=== PATIENT | female | born 1965 | race Caucasian/White ===

== ENCOUNTER 2017-11-25 14:08 | Observation (INO) | payer SELFPAY ==
[~2017-11-25] VITALS: Ht 170.2 cm; Wt 74.0 kg
[2017-11-25] VITALS (7 sets, daily range): BP systolic 151–172; BP diastolic 82–107; PULSE 65–88; RESP 16–18; TEMP 97.5; O2SAT 97–100
[~2017-11-25 14:08] MED LIST: PRED20 PO; WAL-10TA2 PO
[2017-11-25 14:24] LABS: BILIRUBIN, URINE NEG (NEG); BLOOD, URINE NEG (NEG); GLUCOSE,URINE NEG (NEG); KETONE, URINE 15 mg/dL (NEG); NITRITE,URINE NEG (NEG); URINE COLOR YELLOW (YELLW/STRAW); URINE LEUKOCYTE ESTERASE NEG (NEG)
[2017-11-25] MEDS ORDERED: SODIUM CHLOR 0.9% 1000 ML INJ 1,000 ML IV SCH (14:28)
[2017-11-25] MEDS ORDERED: KETOROLAC TROMETHAMINE 30 MG/ML (IVP) VIAL IVP ONE (14:30)
[2017-11-25] MEDS ORDERED: SODIUM CHLORIDE 0.9% FLUSH 10 ML FLUSH IV FLUSH PRN ×2 (14:30→17:30)
[2017-11-25] MEDS ORDERED: ONDANSETRON HCL 4 MG/2 ML VIAL IVP ONE (14:30)
--- NOTE | 2017-11-25 14:34 | PD ---
HPI Chief Complaint: Abdominal Pain Time Seen by Provider: 14:19 Travel History International Travel<30 days: No Contact w/Intl Traveler<30days: No Traveled to known affect area: No History of Present Illness HPI Patient is a 52-year-old female who presents the emergency room with complaints of abdominal pain. Patient reports that her abdominal pain began yesterday after she ate a whopper sandwich for lunch. Reports pain as mild to moderate in nature. Patient reports that her pain is located to her upper abdomen: epigastrium to right upper quadrant, reports that the pain radiates down to her abdomen. Reports that she is having some nausea with her symptoms. Nothing makes pain better or worse. Patient is concerned that she may be lactose intolerant, she did take some lactose pills prior to eating her sandwich yesterday. Patient reports that she has been having persistent abdominal pain since yesterday afternoon. Patient did have a normal bowel movement yesterday. Patient with no chest pain or shortness of breath, no fevers or chills. Patient denies dysuria, urinary urgency or frequency. 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: Yes (H/O PREECLAMPSIA) Respiratory: Yes (CHRONIC BRONCHITIS) Tetanus Vaccination: Unknown ?: Not Tubal Ligation: Yes Past Surgical History Section: Yes Coronary Artery Bypass Graft: No Gynecologic Surgery: Yes Hysterectomy: Yes Family History Family Myocardial Infarction: Yes Social History Alcohol Use: No Tobacco Use: Yes (1 PPD) Substance Use: No Allergies-Medications (Allergen,Severity, Reaction): Coded Allergies: morphine (Unverified Allergy, Severe, Anaphylaxis, 11/25/17) Reported Meds & Prescriptions Reported Meds & Active Scripts Active No Active Prescriptions or Reported Medications Review of Systems General / Constitutional: No: Fever, Chills Eyes: No: Visual changes HENT: No: Headaches Cardiovascular: No: Chest Pain or Discomfort, Palpitations, Irregular Rhythm Respiratory: No: Shortness of Breath Gastrointestinal: Positive: Nausea, Abdominal Pain, Loss of Appetite, No: Vomiting, Diarrhea, Constipation Genitourinary: No: Dysuria Musculoskeletal: No: Pain Skin: No Rash Neurologic: No: Weakness Psychiatric: No: Depression Endocrine: No: Polydipsia Hematologic/Lymphatic: No: Easy Bruising Physical Exam Narrative GENERAL: moderate distress SKIN: Focused skin assessment warm/dry. HEAD: Atraumatic. Normocephalic. EYES: Pupils equal and round. No scleral icterus. No injection or drainage. ENT: No nasal bleeding or discharge. Mucous membranes pink and moist. NECK: Trachea midline. No JVD. CARDIOVASCULAR: Regular rate and rhythm. No murmur appreciated. RESPIRATORY: No accessory muscle use. Clear to auscultation. Breath sounds equal bilaterally. GASTROINTESTINAL: Abdomen soft, increased tenderness to RUQ/epigastrium with guarding on exam, nondistended. Hepatic and splenic margins not palpable. MUSCULOSKELETAL: No obvious deformities. No clubbing. No cyanosis. No edema. NEUROLOGICAL: Awake and alert. No obvious cranial nerve deficits. Motor grossly within normal limits. Normal speech. PSYCHIATRIC: Appropriate mood and affect; insight and judgment normal. Data Data Last Documented VS Vital Signs Date Time Temp Pulse Resp B/P (MAP) Pulse Ox O2 Delivery O2 Flow Rate FiO2 11/25/17 15:48 97 Room Air 11/25/17 15:35 88 17 155/82 (106) 11/25/17 14:12 97.5 Orders Orders Urinalysis - C+S If Indicated (11/25/17 14:11) Complete Blood Count With Diff (11/25/17 14:28) Comprehensive Metabolic Panel (11/25/17 14:28) Lipase (11/25/17 14:28) Prothrombin Time / Inr (Pt) (11/25/17 14:28) Act Partial Throm Time (Ptt) (11/25/17 14:28) Us Abdomen Gallbladder (11/25/17 ) Iv Access Insert/Monitor (11/25/17 14:28) Ecg Monitoring (11/25/17 14:28) Oximetry (11/25/17 14:28) NPO (11/25/17 14:28) Ondansetron Inj (Zofran Inj) (11/25/17 14:30) Sodium Chlor 0.9% 1000 Ml Inj (Ns 1000 M (11/25/17 14:28) Sodium Chloride 0.9% Flush (Ns Flush) (11/25/17 14:30) Ketorolac Inj (Toradol Inj) (11/25/17 14:30) Sodium Chlor 0.9% 1000 Ml Inj (Ns 1000 M (11/25/17 15:15) Ct Abd/Pel W Iv Contrast(Rout) (11/25/17 15:36) Electrocardiogram (11/25/17 ) Iohexol 350 Inj (Omnipaque 350 Inj) (11/25/17 16:19) Admit Order (Ed Use Only) (11/25/17 17:25) Labs Laboratory Tests Test 11/25/17 14:18 11/25/17 14:30 Urine Collection Type CLEAN CATCH Urine Color YELLOW Urine Turbidity CLEAR Urine pH 7.0 Urine Specific Jelm 1.010 Urine Protein NEG mg/dL Urine Glucose (UA) NEG mg/dL Urine Ketones 15 mg/dL Urine Occult Blood NEG Urine Nitrite NEG Urine Bilirubin NEG Urine Urobilinogen 0.2 MG/DL Urine Leukocyte Esterase NEG Urine WBC 0-2 /hpf Urine Squamous Epithelial Cells 0-5 /hpf Urine Bacteria OCC /hpf Microscopic Urinalysis Comment CULT NOT INDICATED Urine Collection Time 14:18 White Blood Count 16.0 TH/MM3 Red Blood Count 5.36 MIL/MM3 Hemoglobin 15.8 GM/DL Hematocrit 45.6 % Mean Corpuscular Volume 85.2 FL Mean Corpuscular Hemoglobin 29.5 PG Mean Corpuscular Hemoglobin Concent 34.6 % Red Cell Distribution Width 12.6 % Platelet Count 378 TH/MM3 Mean Platelet Volume 7.7 FL Neutrophils (%) (Auto) 75.8 % Lymphocytes (%) (Auto) 13.2 % Monocytes (%) (Auto) 7.6 % Eosinophils (%) (Auto) 0.1 % Basophils (%) (Auto) 3.3 % Neutrophils # (Auto) 12.2 TH/MM3 Lymphocytes # (Auto) 2.1 TH/MM3 Monocytes # (Auto) 1.2 TH/MM3 Eosinophils # (Auto) 0.0 TH/MM3 Basophils # (Auto) 0.5 TH/MM3 CBC Comment DIFF FINAL Differential Comment Prothrombin Time 10.3 SEC Prothromb Time International Ratio 1.0 RATIO Activated Partial Thromboplast Time 25.4 SEC Blood Urea Nitrogen 7 MG/DL Creatinine 0.75 MG/DL Random Glucose 109 MG/DL Total Protein 8.1 GM/DL Albumin 3.9 GM/DL Calcium Level 9.4 MG/DL Alkaline Phosphatase 75 U/L Aspartate Amino Transf (AST/SGOT) 17 U/L Alanine Aminotransferase (ALT/SGPT) 17 U/L Total Bilirubin 1.3 MG/DL Sodium Level 137 MEQ/L Potassium Level 3.6 MEQ/L Chloride Level 105 MEQ/L Carbon Dioxide Level 24.5 MEQ/L Anion Gap 8 MEQ/L Estimat Glomerular Filtration Rate 82 ML/MIN Lipase 99 U/L MDM Medical Decision Making Medical Screen Exam Complete: Yes Emergency Medical Condition: Yes Medical Record Reviewed: Yes Interpretation(s) Vital Signs Date Time Temp Pulse Resp B/P (MAP) Pulse Ox O2 Delivery O2 Flow Rate FiO2 11/25/17 14:12 97.5 75 18 172/88 (116) 98 EKG at 1629: NSR at 62bpm, qt/qtc: 491/497, no acute st or t wave changes, hyperacute t waves Laboratory Tests Test 11/25/17 14:18 11/25/17 14:30 Urine Collection Type CLEAN CATCH Urine Color YELLOW (YELLW/STRAW) Urine Turbidity CLEAR (CLEAR) Urine pH 7.0 (5.0-8.5) Urine Specific Jelm 1.010 (1.002-1.035) Urine Protein NEG mg/dL (NEG-TRACE) Urine Glucose (UA) NEG mg/dL (NEG) Urine Ketones 15 mg/dL (NEG) Urine Occult Blood NEG (NEG) Urine Nitrite NEG (NEG) Urine Bilirubin NEG (NEG) Urine Urobilinogen 0.2 MG/DL (LESS THAN Urine Leukocyte Esterase NEG (NEG) Urine WBC 0-2 /hpf (0-5) Urine Squamous Epithelial Cells 0-5 /hpf (0-5) Urine Bacteria OCC /hpf (NONE) Microscopic Urinalysis Comment CULT NOT INDICATED Urine Collection Time 14:18 White Blood Count 16.0 TH/MM3 (4.0-11.0) Red Blood Count 5.36 MIL/MM3 (4.00-5.30) Hemoglobin 15.8 GM/DL (11.6-15.3) Hematocrit 45.6 % (35.0-46.0) Mean Corpuscular Volume 85.2 FL (80.0-100.0) Mean Corpuscular Hemoglobin 29.5 PG (27.0-34.0) Mean Corpuscular Hemoglobin Concent 34.6 % (32.0-36.0) Red Cell Distribution Width 12.6 % (11.6-17.2) Platelet Count 378 TH/MM3 (150-450) Mean Platelet Volume 7.7 FL (7.0-11.0) Neutrophils (%) (Auto) 75.8 % (16.0-70.0) Lymphocytes (%) (Auto) 13.2 % (9.0-44.0) Monocytes (%) (Auto) 7.6 % (0.0-8.0) Eosinophils (%) (Auto) 0.1 % (0.0-4.0) Basophils (%) (Auto) 3.3 % (0.0-2.0) Neutrophils # (Auto) 12.2 TH/MM3 (1.8-7.7) Lymphocytes # (Auto) 2.1 TH/MM3 (1.0-4.8) Monocytes # (Auto) 1.2 TH/MM3 (0-0.9) Eosinophils # (Auto) 0.0 TH/MM3 (0-0.4) Basophils # (Auto) 0.5 TH/MM3 (0-0.2) CBC Comment DIFF FINAL Differential Comment Prothrombin Time 10.3 SEC (9.8-11.6) Prothromb Time International Ratio 1.0 RATIO Activated Partial Thromboplast Time 25.4 SEC (24.3-30.1) Blood Urea Nitrogen 7 MG/DL (7-18) Creatinine 0.75 MG/DL (0.50-1.00) Random Glucose 109 MG/DL (74-106) Total Protein 8.1 GM/DL (6.4-8.2) Albumin 3.9 GM/DL (3.4-5.0) Calcium Level 9.4 MG/DL (8.5-10.1) Alkaline Phosphatase 75 U/L (45-117) Aspartate Amino Transf (AST/SGOT) 17 U/L (15-37) Alanine Aminotransferase (ALT/SGPT) 17 U/L (10-53) Total Bilirubin 1.3 MG/DL (0.2-1.0) Sodium Level 137 MEQ/L (136-145) Potassium Level 3.6 MEQ/L (3.5-5.1) Chloride Level 105 MEQ/L (98-107) Carbon Dioxide Level 24.5 MEQ/L (21.0-32.0) Anion Gap 8 MEQ/L (5-15) Estimat Glomerular Filtration Rate 82 ML/MIN (>89) Lipase 99 U/L (73-393) Last Impressions Gall Bladder Ultrasound 11/25/17 0000 Signed Impressions: Service Date/Time: Saturday, November 25, 2017 14:36 - CONCLUSION: Hepatomegaly. Octavio Taylor MD Differential Diagnosis Gastritis, gastroenteritis, cholecystitis, pancreatitis, electrolyte abnormality , hepatitis, gastric ulcer Narrative Course Patient is a 52-year-old female who presents the emergency room complaints of abdominal pain which has been ongoing since yesterday afternoon after she ate a whopper sandwich at a local fast food restaurant. During the course of the patients emergency department visit, the patients history, examination, and differential diagnosis were reviewed with the patient. The patient was placed on a site reliability engineer with oximetry and frequent blood pressure monitoring. The patient had an IV access obtained and blood work sent for analysis. The patient was initially provided IV toradol, IVF The patients laboratory studies were reviewed and remarkable for CBC & BMP Diagram 11/25/17 14:30 Total Protein 8.1, Albumin 3.9, Calcium Level 9.4, Alkaline Phosphatase 75, Aspartate Amino Transf (AST/SGOT) 17, Alanine Aminotransferase (ALT/SGPT) 17, Total Bilirubin 1.3 H Radiology studies were reviewed and remarkable for Last Impressions Gall Bladder Ultrasound 11/25/17 0000 Signed Impressions: Service Date/Time: Saturday, November 25, 2017 14:36 - CONCLUSION: Hepatomegaly. Octavio Taylor MD Gallbladder ultrasound significant for hepatomegaly, there is normal gallbladder. Patient reports that pain has improved but she still is uncomfortable. CT the abdomen and pelvis with IV contrast ordered to further evaluate abdominal pain Last Impressions Abdomen/Pelvis CT 11/25/17 1536 Signed Impressions: Service Date/Time: Saturday, November 25, 2017 16:08 - CONCLUSION: 1. Wedge-shaped area of low-density in the spleen likely infarct in the absence of trauma. 2. Soft tissue nodule posterior right pelvis could be hemorrhagic cyst or other ovarian etiology. Pelvic sonogram recommended for further characterization. Deepak Serrano MD Gall Bladder Ultrasound 11/25/17 0000 Signed Impressions: Service Date/Time: Saturday, November 25, 2017 14:36 - CONCLUSION: Hepatomegaly. Octavio Taylor MD CT the abdomen and pelvis shows a wedge-shaped area of low density spleen which would likely represent a splenic infarct. Patient does not have presence of a hypercoagulable state, she does not have history of an embolic disease or underlying neoplasm, she does not have history of hemoglobinopathy or sickle cell disease, patient was not involved in any trauma. Given the fact she continues to have upper abdominal pain, plan to admit her to the hospital for further evaluation case reviewed with Dr. Randall who accepts pt to service Diagnosis Primary Impression: Splenic infarct Additional Impression: Abdominal pain Qualified Codes: R10.10 - Upper abdominal pain, unspecified Admitting Information Admitting Physician Requests: Observation Scripts No Active Prescriptions or Reported Meds Jessica Ordonez DO Nov 25, 2017 14:34
[2017-11-25 14:39] LABS: AUTOMATED NEUTROPHIL # 12.2 TH/MM3 (1.8-7.7); BASOPHIL # 0.5 TH/MM3 (0-0.2); BASOPHIL % 3.3 % (0.0-2.0); EOSINOPHIL % 0.1 % (0.0-4.0); HEMATOCRIT 45.6 % (35.0-46.0); HEMOGLOBIN 15.8 GM/DL (11.6-15.3); LYMPH % 13.2 % (9.0-44.0); LYMPHOCYTE # 2.1 TH/MM3 (1.0-4.8); MEAN CELL VOLUME 85.2 FL (80.0-100.0); MEAN CORPUSCULAR HEMOGLOBIN 29.5 PG (27.0-34.0); MEAN CORPUSCULAR HGB CONC 34.6 % (32.0-36.0); MEAN PLATELET VOLUME 7.7 FL (7.0-11.0); MONO % 7.6 % (0.0-8.0); MONOCYTE # 1.2 TH/MM3 (0-0.9); NEUT % 75.8 % (16.0-70.0); PLATELET COUNT 378 TH/MM3 (150-450); RED BLOOD COUNT 5.36 MIL/MM3 (4.00-5.30); RED CELL DISTRIBUTION WIDTH 12.6 % (11.6-17.2)
[2017-11-25 14:52] LABS: CHLORIDE 105 MEQ/L (98-107); SODIUM (NA) 137 MEQ/L (136-145)
[2017-11-25 14:55] LABS: CALCIUM 9.4 MG/DL (8.5-10.1)
[2017-11-25 14:56] LABS: ALBUMIN 3.9 GM/DL (3.4-5.0); BICARBONATE 24.5 MEQ/L (21.0-32.0); BLOOD UREA NITROGEN 7 MG/DL (7-18); GLUCOSE,RANDOM 109 MG/DL (74-106)
[2017-11-25 14:58] LABS: ALT (GPT) 17 U/L (10-53); AST (GOT) 17 U/L (15-37); CREATININE 0.75 MG/DL (0.50-1.00); GLOMERULAR FILTRATION RATE 82 ML/MIN (>89)
[2017-11-25 14:59] LABS: PROTHROMBIN TIME - PATIENT 10.3 SEC (9.8-11.6)
[2017-11-25 15:00] LABS: TOTAL BILIRUBIN ADULT 1.3 MG/DL (0.2-1.0); TOTAL PROTEIN 8.1 GM/DL (6.4-8.2)
[2017-11-25 15:01] LABS: ALKALINE PHOSPHATASE 75 U/L (45-117)
[2017-11-25] MEDS ORDERED: SODIUM CHLOR 0.9% 1000 ML INJ 1,000 ML IV ONE (15:15)
--- NOTE | 2017-11-25 15:30 | RADRPT ---
EXAM DATE/TIME: 11/25/2017 14:36 [facility] COMPARISON: US ABDOMEN - GALLBLADDER, August 26, 2013, 11:48. INDICATIONS : Right upper quadrant pain. MEDICAL HISTORY : Spinal cyst. Chronic bronchitis. Scoliosis. Bipolar disorder. SURGICAL HISTORY : Tubal ligation. Hysterectomy. section. ENCOUNTER: Initial ACUITY: 2 days PAIN SCORE: 10/10 LOCATION: Right upper quadrant MEASUREMENTS: LIVER: 19.5 cm length COMMON DUCT: 4 mm RIGHT KIDNEY: 10.8 x 4.9 x 4.0 cm FINDINGS: LIVER: The liver appears enlarged. There is no focal lesion or ductal dilatation. COMMON DUCT: No intraluminal mass or stone visualized. GALLBLADDER: Contains no stones, demonstrates no wall thickening or pericholecystic fluid. PANCREAS: The visualized portions are within normal limits. RIGHT KIDNEY: No evidence of hydronephrosis, stone, or mass. CONCLUSION: Hepatomegaly. Octavio Taylor MD on November 25, 2017 at 15:27 Board Certified Radiologist. This report was verified electronically.
[2017-11-25] MEDS ORDERED: IOHEXOL 350 MG/ML 10 ML VIAL (for RAD DIAG) IVCONTRAST ONE (16:19)
[2017-11-25 16:28] LABS: BACTERIA, URINE OCC /hpf; SQUAMOUS EPITHELIAL CELL URINE 0-5 /hpf (0-5); WBC, URINE 0-2 /hpf (0-5)
--- NOTE | 2017-11-25 16:39 | RADRPT ---
EXAM DATE/TIME: 11/25/2017 16:08 [facility] COMPARISON: No previous studies available for comparison. INDICATIONS : Pain across abdomen, nausea, vomiting. IV CONTRAST: 75 cc Omnipaque 350 (iohexol) IV ORAL CONTRAST: No oral contrast ingested. RADIATION DOSE: 10.11 CTDIvol (mGy) MEDICAL HISTORY : Cyst on spine, scoliosis, bronchitis, Bipolar SURGICAL HISTORY : Tubal ligation. Hysterectomy. ENCOUNTER: Initial ACUITY: 1 day PAIN SCALE: 10/10 LOCATION: Bilateral diffuse abdomen TECHNIQUE: Volumetric scanning of the abdomen and pelvis was performed. Using automated exposure control and ad justment of the mA and/or kV according to patient size, radiation dose was kept as low as reasonably achievable to obtain optimal diagnostic quality images. DICOM format image data is available electro nically for review and comparison. FINDINGS: LOWER LUNGS: The visualized lower lungs are clear. LIVER: Homogeneous density without lesion. There is no dilation of the biliary tree. No calcified gallston es. SPLEEN: Wedge-shaped area of low-density in the spleen likely infarct.. PANCREAS: Within normal limits. KIDNEYS: Normal in size and shape. There is no mass, stone or hydronephrosis. ADRENAL GLANDS: Within normal limits. VASCULAR: There is no aortic aneurysm. BOWEL/MESENTERY: The stomach, small bowel, and colon demonstrate no acute abnormality. There is no free intraperitone al air or fluid. Normal appendix. ABDOMINAL WALL: Within normal limits. RETROPERITONEUM: There is no lymphadenopathy. BLADDER: No wall thickening or mass. REPRODUCTIVE: Status post hysterectomy. Soft tissue nodule right posterior pelvis measures 4.1 x 4.1 cm.. INGUINAL: There is no lymphadenopathy or hernia. MUSCULOSKELETAL: Within normal limits for patient age. CONCLUSION: 1. Wedge-shaped area of low-density in the spleen likely infarct in the absence of trauma. 2. Soft tissue nodule posterior right pelvis could be hemorrhagic cyst or other ovarian etiology. Pel dave sonogram recommended for further characterization. Deepak Serrano MD on November 25, 2017 at 16:34 Board Certified Radiologist. This report was verified electronically.
[2017-11-25] MEDS ORDERED: NALOXONE HCL 0.4 MG/ML AMP IV PUSH PRN (17:30)
[2017-11-25] MEDS ORDERED: ONDANSETRON HCL 4 MG/2 ML VIAL IVP PRN (17:30)
[2017-11-25] MEDS ORDERED: MAGNESIUM HYDROXIDE SUSP 30 ML CUP PO PRN (17:30)
[2017-11-25] MEDS: ENOXAPARIN SODIUM 40 MG/0.4 ML SYRINGE SQ SCH (18:09)
[2017-11-25] MEDS: SODIUM CHLORIDE 0.9% FLUSH 10 ML FLUSH IV FLUSH SCH (19:29)
[2017-11-25] MEDS: ACETAMINOPHEN/HYDROcodone 325 MG/10 MG TAB PO PRN (20:08)
[2017-11-26] VITALS: BP 157/100; PULSE 74; RESP 16; TEMP 97.5; O2SAT 98
[2017-11-26] MEDS: ACETAMINOPHEN/HYDROcodone 325 MG/10 MG TAB PO PRN ×2 (00:10→06:20)
--- NOTE | 2017-11-26 00:12 | EKG ---
Date Performed: 11/25/2017 Time Performed: 16:29:45 PTAGE: 52 years EKG: Sinus rhythm TALL T-WAVES, SUGGESTS HYPERKALEMIA PROLONGED QT INTERVAL ABNORMAL ECG PREVIOUS TRACING : 08/26/2013 12.38 Compared to previous tracing, T-waves with peaking and prol onged QTc, consideration of hyperkalemia DOCTOR: David Watkins Interpretating Date/Time 11/26/2017 00:12:05
[2017-11-26 06:39] LABS: AUTOMATED NEUTROPHIL # 7.7 TH/MM3 (1.8-7.7); BASOPHIL # 0.1 TH/MM3 (0-0.2); BASOPHIL % 0.7 % (0.0-2.0); EOSINOPHIL % 0.4 % (0.0-4.0); HEMATOCRIT 39.4 % (35.0-46.0); HEMOGLOBIN 13.4 GM/DL (11.6-15.3); LYMPH % 14.9 % (9.0-44.0); LYMPHOCYTE # 1.5 TH/MM3 (1.0-4.8); MEAN CORPUSCULAR HEMOGLOBIN 29.1 PG (27.0-34.0); MEAN CORPUSCULAR HGB CONC 33.8 % (32.0-36.0); MEAN PLATELET VOLUME 7.9 FL (7.0-11.0); MONO % 10.3 % (0.0-8.0); MONOCYTE # 1.1 TH/MM3 (0-0.9); NEUT % 73.7 % (16.0-70.0); PLATELET COUNT 267 TH/MM3 (150-450); RED BLOOD COUNT 4.59 MIL/MM3 (4.00-5.30); RED CELL DISTRIBUTION WIDTH 12.3 % (11.6-17.2); WHITE BLOOD COUNT 10.4 TH/MM3 (4.0-11.0)
[2017-11-26 06:49] LABS: CHLORIDE 108 MEQ/L (98-107); SODIUM (NA) 139 MEQ/L (136-145)
[2017-11-26 07:20] LABS: ALBUMIN 3.2 GM/DL (3.4-5.0); ALKALINE PHOSPHATASE 61 U/L (45-117); ALT (GPT) 13 U/L (10-53); AST (GOT) 13 U/L (15-37); BICARBONATE 25.3 MEQ/L (21.0-32.0); BLOOD UREA NITROGEN 8 MG/DL (7-18); CALCIUM 8.5 MG/DL (8.5-10.1); CREATININE 0.65 MG/DL (0.50-1.00); GLOMERULAR FILTRATION RATE 96 ML/MIN (>89); GLUCOSE,RANDOM 97 MG/DL (74-106); TOTAL BILIRUBIN ADULT 1.4 MG/DL (0.2-1.0); TOTAL PROTEIN 6.9 GM/DL (6.4-8.2)
[2017-11-26 07:47] VITALS: BP 146/92; PULSE 68; RESP 16; TEMP 98.1; O2SAT 95
[2017-11-26] MEDS ORDERED: ASPIRIN 325 MG TAB PO ONE (09:00)
[2017-11-26] MEDS ORDERED: PNEUMOCOCCAL POLYVALENT INJ 25 MCG/0.5 ML SYR IM ONE (09:00)
--- NOTE | 2017-11-26 09:10 | HHI.HP ---
[facility] Phys[place] No Primary Care Physician Admission Diagnosis Splenic infarction Diagnoses: Chief Complaint: Abdominal pain Travel History International Travel<30 Days: No Contact w/Intl Traveler <30 Da: No Traveled to Known Affected Are: No History of Present Illness 52-year-old white female being admitted for intractable abdominal pain. Patient was in her usual state of health until 2 days ago around noon when she began experiencing a cramping pain in her midabdomen that progressed in intensity over time, did also have a colicky nature. Pain became so severe, took Advil to no avail. Decided to come to the emergency department. Did have some nausea and very mild clear emesis. Otherwise did not have any diarrhea, no hematuria, no dysuria. Pain is not worsened by eating, but it is affecting her appetite. Patient says that this pain presentation did happen about 2 weeks ago to much milder extent and did self resolve. In the emergency department patient had a CT abdomen which was performed, which I independently reviewed and I see substantial stool retention throughout the colon. There does appear to be an opacity per the radiologist read over the spleen of a wedgelike possible infarct. Radiology also read as a possible hemorrhagic cyst or ovary on the right side. Gallbladder ultrasound reading indicates hepatomegaly, otherwise unremarkable. I independently reviewed the EKG and see no signs of atrial fibrillation but I do see pronounced T waves. Review of Systems Except as stated in HPI: all other systems reviewed are Neg Past Family Social History Past Medical History Chronic bronchitis per patient Past Surgical History Hysterectomy due to fibroids, still has ovaries Allergies: Coded Allergies: morphine (Unverified Allergy, Severe, Anaphylaxis, 11/25/17) mushroom (Verified Allergy, Severe, BODY SWELLING, 11/25/17) Family History Breast cancer in grandmother, ovarian cancer in mother, leukemia and aunt, stroke in father Social History Lifelong history of intermittent smoking, denies drinking alcohol Physical Exam Vital Signs Vital Signs Date Time Temp Pulse Resp B/P (MAP) Pulse Ox O2 Delivery O2 Flow Rate FiO2 11/26/17 07:47 98.1 68 16 146/92 (110) 95 11/26/17 00:00 97.5 74 16 157/100 (119) 98 11/25/17 20:00 97.5 65 16 159/107 (124) 100 11/25/17 18:39 71 17 151/90 (110) 99 11/25/17 18:11 66 18 166/92 (116) 99 Room Air 11/25/17 17:05 75 18 161/97 (118) 99 Room Air 11/25/17 15:48 97 Room Air 11/25/17 15:35 88 17 155/82 (106) 97 Room Air 11/25/17 15:32 18 11/25/17 14:12 97.5 75 18 172/88 (116) 98 Physical Exam VS: afebrile GENERAL: Middle-aged white female, well-nourished, lying in bed, mild distress secondary to pain SKIN: Warm and dry. EYES: No scleral icterus. No injection or drainage. ENT: No nasal bleeding or discharge. Mucous membranes pink and moist. CARDIOVASCULAR: Regular rate and rhythm. no murmurs RESPIRATORY: No accessory muscle use. Clear to auscultation. Breath sounds equal bilaterally. GASTROINTESTINAL: Abdomen soft, nondistended, has diffuse tenderness to palpation over right sided quadrants epigastrium and left sided quadrants with left sided quadrants being greater than the rest. Does have left CVA tenderness to palpation but none on the right. Extremities: No clubbing, cyanosis, or edema. No obvious deformities. MUSCULOSKELETAL: adequate muscle bulk and tone for age and habitus NEUROLOGICAL: Awake and alert. No obvious cranial nerve deficits. No facial droop nor slurred speech noted. PSYCHIATRIC: Appropriate mood and affect; insight and judgment normal. Laboratory Laboratory Tests Test 11/25/17 14:18 11/25/17 14:30 11/26/17 06:06 Urine Collection Type CLEAN CATCH Urine Color YELLOW Urine Turbidity CLEAR Urine pH 7.0 Urine Specific [place] 1.010 Urine Protein NEG Urine Glucose (UA) NEG Urine Ketones 15 Urine Occult Blood NEG Urine Nitrite NEG Urine Bilirubin NEG Urine Urobilinogen 0.2 Urine Leukocyte Esterase NEG Urine WBC 0-2 Urine Squamous Epithelial Cells 0-5 Urine Bacteria OCC Microscopic Urinalysis Comment CULT NOT INDICATED Urine Collection Time 14:18 White Blood Count 16.0 10.4 Red Blood Count 5.36 4.59 Hemoglobin 15.8 13.4 Hematocrit 45.6 39.4 Mean Corpuscular Volume 85.2 86.0 Mean Corpuscular Hemoglobin 29.5 29.1 Mean Corpuscular Hemoglobin Concent 34.6 33.8 Red Cell Distribution Width 12.6 12.3 Platelet Count 378 267 Mean Platelet Volume 7.7 7.9 Neutrophils (%) (Auto) 75.8 73.7 Lymphocytes (%) (Auto) 13.2 14.9 Monocytes (%) (Auto) 7.6 10.3 Eosinophils (%) (Auto) 0.1 0.4 Basophils (%) (Auto) 3.3 0.7 Neutrophils # (Auto) 12.2 7.7 Lymphocytes # (Auto) 2.1 1.5 Monocytes # (Auto) 1.2 1.1 Eosinophils # (Auto) 0.0 0.0 Basophils # (Auto) 0.5 0.1 CBC Comment DIFF FINAL DIFF FINAL Differential Comment Prothrombin Time 10.3 Prothromb Time International Ratio 1.0 Activated Partial Thromboplast Time 25.4 Blood Urea Nitrogen 7 8 Creatinine 0.75 0.65 Random Glucose 109 97 Total Protein 8.1 6.9 Albumin 3.9 3.2 Calcium Level 9.4 8.5 Alkaline Phosphatase 75 61 Aspartate Amino Transf (AST/SGOT) 17 13 Alanine Aminotransferase (ALT/SGPT) 17 13 Total Bilirubin 1.3 1.4 Sodium Level 137 139 Potassium Level 3.6 3.7 Chloride Level 105 108 Carbon Dioxide Level 24.5 25.3 Anion Gap 8 6 Estimat Glomerular Filtration Rate 82 96 Lipase 99 Result Diagram: 11/26/17 0606 11/26/17 0606 Imaging Last Impressions Abdomen/Pelvis CT 11/25/17 1536 Signed Impressions: Service Date/Time: Saturday, November 25, 2017 16:08 - CONCLUSION: 1. Wedge-shaped area of low-density in the spleen likely infarct in the absence of trauma. 2. Soft tissue nodule posterior right pelvis could be hemorrhagic cyst or other ovarian etiology. Pelvic sonogram recommended for further characterization. Deepak Serrano MD Gall Bladder Ultrasound 11/25/17 0000 Signed Impressions: Service Date/Time: Saturday, November 25, 2017 14:36 - CONCLUSION: Hepatomegaly. MD Camille Francisco VTE Risk Assessment Caprini VTE Risk Assessment: Mod/High Risk (score >= 2) Caprini Risk Assessment Model Point Value = 1 Point Value = 2 Point Value = 3 Point Value = 5 Age 41-60 Minor surgery BMI > 25 kg/m2 Swollen legs Varicose veins or History of unexplained or recurrent spontaneous Oral contraceptives or hormone replacement Sepsis (< 1 month) Serious lung disease, including pneumonia (< 1 month) Abnormal pulmonary function Acute myocardial infarction Congestive heart failure (< 1 month) History of inflammatory bowel disease Medical patient at bed rest Age 61-74 Arthroscopic surgery Major open surgery (> 45 min) Laparoscopic surgery (> 45 min) Malignancy Confined to bed (> 72 hours) Immobilizing plaster cast Central venous access Age >= 75 History of VTE Family history of VTE Factor V Leiden Prothrombin [id number] Lupus anticoagulant Anticardiolipin antibodies Elevated serum homocysteine Heparin-induced thrombocytopenia Other congenital or acquired thrombophilia Stroke (< 1 month) Elective arthroplasty Hip, pelvis, or leg fracture Acute spinal cord injury (< 1 month) Prophylaxis Regimen Total Risk Factor Score Risk Level Prophylaxis Regimen 0-1 Low Early ambulation 2 Moderate Order ONE of the following: *Sequential Compression Device (SCD) *Heparin 5000 units SQ BID 3-4 Higher Order ONE of the following medications: *Heparin 5000 units SQ TID *Enoxaparin/Lovenox 40 mg SQ daily (WT < 150 kg, CrCl > 30 mL/min) *Enoxaparin/Lovenox 30 mg SQ daily (WT < 150 kg, CrCl > 10-29 mL/min) *Enoxaparin/Lovenox 30 mg SQ BID (WT < 150 kg, CrCl > 30 mL/min) AND/OR *Sequential Compression Device (SCD) 5 or more Highest Order ONE of the following medications: *Heparin 5000 units SQ TID (Preferred with Epidurals) *Enoxaparin/Lovenox 40 mg SQ daily (WT < 150 kg, CrCl > 30 mL/min) *Enoxaparin/Lovenox 30 mg SQ daily (WT < 150 kg, CrCl > 10-29 mL/min) *Enoxaparin/Lovenox 30 mg SQ BID (WT < 150 kg, CrCl > 30 mL/min) AND *Sequential Compression Device (SCD) Assessment and Plan Assessment and Plan 52-year-old white female being admitted for intractable abdominal pain Abdominal pain -Likely multifactorial, bulk of it may be possible splenic infarction, discussed with vascular surgery, no intervention warranted. Supportive medical management with antiplatelet and to treat underlying cause; will need outpt hematology f/u -We will place the patient on telemetry to look for atrial fibrillation -Daily aspirin -Given a possible hemorrhagic cyst/nodularity in the right ovarian region, we will obtain a pelvic ultrasound especially given patient's mother's history of ovarian cancer -Additionally we will treat the patient for constipation noting the stool retention seen on the CT -which could be affecting/amplifying pain caused by other etiologies as above -if pain is not improved by tonight/parker, will consider HIDA constipation - tsh, miralax, soap suds enema hepatomegaly likely 2/2 GUEVARA - conservative management, may likely need outpt GI management Chronic bronchitis -Albuterol as needed leukocytosis - likely 2/2 pain/resolved now Bal Byole MD Nov 26, 2017 09:10
[2017-11-26] MEDS ORDERED: RESP: ALBUTEROL 1.25 MG/3 ML NEB (PRN) NEB (09:15)
[2017-11-26] MEDS ORDERED: POLYETHYLENE GLYCOL 17 GM PKG PO ONE (09:15)
[2017-11-26] MEDS: NICOTINE 21 MG/24 HR PATCH T-DERMAL SCH (09:34)
[2017-11-26] MEDS: SODIUM CHLORIDE 0.9% FLUSH 10 ML FLUSH IV FLUSH SCH ×2 (09:37→21:38)
--- NOTE | 2017-11-26 09:59 | RADRPT ---
EXAM DATE/TIME: 11/26/2017 09:12 [place] COMPARISON: CT ABDOMEN & PELVIS W CONTRAST, November 25, 2017, 16:08. INDICATIONS : Pelvic pain. MEDICAL HISTORY : Cyst on spine. Scoliosis. Bipolar. SURGICAL HISTORY : Partial hysterectomy. Tubal ligation. ENCOUNTER: Initial ACUITY: 1 day PAIN SCORE: 4/10 LOCATION: Bilateral pelvis MEASUREMENTS: UTERUS: Surgically absent RIGHT OVARY: 5.9 x 4.4 x 3.4 cm LEFT OVARY: 2.6 x 1.3 x 1.3 cm FINDINGS: UTERUS: Hysterectomy. RIGHT OVARY: The right ovary is enlarged. A 2 cm anechoic cyst with thin internal septation is noted, as well as o verall heterogeneous appearance of the right ovary. There is blood flow identified on color Doppler i maging. LEFT OVARY: Ovary contains no mass or significant cystic lesion. MISCELLANEOUS: No free fluid. CONCLUSION: Right ovary is asymmetrically enlarged and heterogeneous. Blood flow is documented on color Doppler i maging. There is a least one benign appearing cyst as well as echogenic and hypoechoic areas. The po ssibility of torsion/detorsion is difficult to exclude. Carter Ruano MD on November 26, 2017 at 9:50 Board Certified Radiologist. This report was verified electronically.
[2017-11-26] MEDS: ACETAMINOPHEN/HYDROcodone 325 MG/5 MG TAB PO PRN ×3 (11:02→21:38)
[2017-11-26 12:00] VITALS: BP 157/89; PULSE 61; RESP 18; TEMP 98.3; O2SAT 97
[2017-11-26] MEDS ORDERED: METHYLNALTREXONE BROMIDE 12 MG/0.6 ML VIAL SQ ONE (14:00)
[2017-11-26 16:00] VITALS: BP 156/98; PULSE 78; RESP 18; TEMP 97.4; O2SAT 97
[2017-11-26] MEDS: ENOXAPARIN SODIUM 40 MG/0.4 ML SYRINGE SQ SCH (17:01)
[2017-11-26 17:38] VITALS: PULSE 67
[2017-11-26 20:00] VITALS: BP 142/93; PULSE 70; PULSE 72; RESP 20; TEMP 98.4; O2SAT 98
[2017-11-27 00:35] VITALS: BP 138/84; PULSE 71; RESP 20; TEMP 98.6; O2SAT 98
[2017-11-27] MEDS: ACETAMINOPHEN/HYDROcodone 325 MG/5 MG TAB PO PRN ×3 (03:18→13:59)
[2017-11-27 04:12] VITALS: BP 136/83; PULSE 73; RESP 20; TEMP 97.8; O2SAT 96
[2017-11-27 07:50] VITALS: BP 146/90; PULSE 63; RESP 20; TEMP 97.5; O2SAT 97
[2017-11-27 08:00] VITALS: PULSE 68
[2017-11-27] MEDS: NICOTINE 21 MG/24 HR PATCH T-DERMAL SCH (08:02)
[2017-11-27] MEDS: SODIUM CHLORIDE 0.9% FLUSH 10 ML FLUSH IV FLUSH SCH (08:03)
[2017-11-27] MEDS ORDERED: POLYETHYLENE GLYCOL 17 GM PKG PO SCH (09:00)
[2017-11-27] MEDS ORDERED: REMOVE OLD PATCH T-DERMAL SCH (09:00)
[2017-11-27] MEDS ORDERED: ASPIRIN 325 MG TAB PO SCH (09:00)
[2017-11-27 11:50] VITALS: BP 137/86; PULSE 63; RESP 20; TEMP 98; O2SAT 96
[2017-11-27] MEDS ORDERED: ASPI-516 CHEW (13:57)
--- NOTE | 2017-11-27 13:57 | HHI.DCPOC ---
Discharge Care Plan Diagnosis: (1) Constipation (2) Splenic infarct (3) Abdominal pain Goals to Promote Your Health * To prevent worsening of your condition and complications * To maintain your health at the optimal level Directions to Meet Your Goals Take your medications as prescribed Follow your dietary instruction Follow activity as directed Keep your appointments as scheduled Take your immunizations and boosters as scheduled If your symptoms worsen call your PCP, if no PCP go to Urgent Care Center or Emergency Room Smoking is Dangerous to Your Health. Avoid second hand smoke Call the 24-hour hour crisis hotline for domestic abuse at Bal Yeager MD Nov 27, 2017 13:57
[2017-11-27] MEDS ORDERED: MIRA3350 PO (13:59)
[2017-11-27] MEDS ORDERED: HYDR-3516 PO (14:01)
--- NOTE | 2017-11-27 14:02 | HHI.PR ---
Subjective Remarks Nursing denies any deterioration since last night. Patient tolerating p.o. intake well, pain much improved. Afebrile. Objective Vital Signs Date Time Temp Pulse Resp B/P (MAP) Pulse Ox O2 Delivery O2 Flow Rate FiO2 11/27/17 11:50 98.0 63 20 137/86 (103) 96 11/27/17 07:50 97.5 63 20 146/90 (108) 97 11/27/17 04:12 97.8 73 20 136/83 (100) 96 11/27/17 00:35 98.6 71 20 138/84 (102) 98 11/26/17 20:00 98.4 70 20 142/93 (109) 98 11/26/17 20:00 72 11/26/17 18:11 18 11/26/17 17:38 67 11/26/17 16:00 97.4 78 18 156/98 (117) 97 I/O 11/26/17 11/26/17 11/26/17 11/27/17 11/27/17 11/27/17 07:00 15:00 23:00 07:00 15:00 23:00 Intake Total 240 ml 1440 ml Balance 240 ml 1440 ml Intake Oral 240 ml 1440 ml # Voids 1 6 # Bowel Movements 0 Result Diagram: 11/26/17 0606 11/26/17 06 Objective Remarks Unlabored breathing, minimal abdominal tenderness diffusely, soft, nondistended A/P Assessment and Plan Intractable abdominal pain -Much improved since admission, likely secondary to splenic infarction compounded by constipation. Patient has met maximal benefit from hospitalization and is clinically stable for discharge. To continue aspirin daily as well as MiraLAX. Patient has been counseled to follow-up with hematology outpatient further workup. Bal Yeager MD Nov 27, 2017 14:02
--- NOTE | 2017-11-28 16:45 | HM ---
Date Performed: 11/26/2017 Time Performed: 15:22:00 HOOKUP DATE: 11/26/17 03:22:00 PM Sun ANALYSIS START TIME: 11/26/2017 3:27:00 PM ANALYSIS END TIME: 11/27/2017 2:53:55 PM PATIENT AGE: 52 PATIENT HEIGHT PATIENT WEIGHT DRUG LIST PATIENT DIAGNOSIS: SPLENIC INFARCTION TEST NARRATIVE: The patient's average heart rate was 66 BPM. No episodes of tachycardia wer e noted. No episodes of bradycardia were noted. No pauses exceeding 2.0 seconds were noted. No ventricular ectopics were noted. 4 supraventricular ectopics, which represented < 1% of the to all beat count, were noted. The highest supraventricular ectopic frequency occurred from 06:00 PM to 07:00 PM Sun. During this time 1 SVE(s) occurred. Multiple episodes of ST depression (defined a s -1.0 mm or more) were noted in channel 1. The maximum depression of -1.7 mm occurred at 09:01:49 PM Sun. Multiple episodes of ST depression (defined as -1.0 mm or more) were noted in channel 2. T he maximum depression of -1.5 mm occurred at 11:56:36 AM Mon. No episodes of ST depression (defined as -1.0 mm or more) were noted in channel 3. NO DIARY GIVEN TO PATIENT BY DS TEST INTERPRETATION: No diary is available. No significant pauses are present. The underlying rh ythm is Sinus rhythm with average rate 66 bpm and range of 52 to 94 bpm. Rare isolated premature atrial contractions are seen. No ventricular ectopy is seen. Signed by : Delio Orozco
== END 2017-11-27 15:47 | disposition home or self-care (01) ==
LOC: PHED 14:08 → PHEDA 17:26 → PH3A 18:35
PROVIDERS: ADMIT Hospitalist; ATTEND Hospitalist
DX: R10.10 Upper abdominal pain, unspecified (principal); K59.00 Constipation, unspecified; D73.5 Infarction of spleen; R16.0 Hepatomegaly, not elsewhere classified; J42 Unspecified chronic bronchitis; D72.829 Elevated white blood cell count, unspecified; R11.2 Nausea with vomiting, unspecified; I45.81 Long QT syndrome; I49.1 Atrial premature depolarization; R94.31 Abnormal electrocardiogram [ECG] [EKG]; F31.9 Bipolar disorder, unspecified; M41.9 Scoliosis, unspecified; Z23 Encounter for immunization
CPT/HCPCS: 74177; 76705; 76830; 76856; 80053; 81001; 83690; 84443; 85025; 85610; 85730; 90471; 90732; 93005; 93225; 93226; 96361; 96372; 96374; 96375; 99285; G0378; J1650; J1885; J2212; J2405; J7030; Q9967; G0009